=== PATIENT | male | born 1960 | race Caucasian/White ===

== ENCOUNTER 2020-12-02 15:57 | Observation (INO) | payer OTHER, SELFPAY ==
--- NOTE | ~2020-12-02 | CT_ITS ---
EXAMINATION: CT abdomen pelvis wo con DATE: 12/02/2020 16:52 INDICATION: Right flank pain. TECHNIQUE: Computed tomography (CT) of the abdomen and pelvis was performed without intravenous contr ast. Automated exposure control and iterative reconstruction technique were employed. The dose-length product was 253.32 mGy-cm. COMPARISON: None. FINDINGS: The visualized portions of the lung bases demonstrate minimal atelectasis. No pleural effus ion. The heart size is normal. No pericardial effusion. The liver, gallbladder, spleen, pancreas, and adrenal glands are normal. There are 8 mm and 6 mm stones in right kidney. There is mild right hydro nephrosis and hydroureter. There is a 5 mm stone in proximal right ureter. There is a 7.1 cm cyst in left kidney. There are no dilated loops of bowel. The appendix is normal. There are no pathologically enlarged lymph nodes. There is no free intraperitoneal fluid. There is moderate lumbar spondylosis a nd mild thoracic spondylosis. IMPRESSION: 1. 5 mm stone in proximal right ureter with mild right hydronephrosis and proximal hydroureter. 2. Nonobstructing right kidney stones. Reviewed, dictated and finalized at location A. IMPRESSION: 1. 5 mm stone in proximal right ureter with mild right hydronephrosis and proxi mal hydroureter. 2. Nonobstructing right kidney stones.
--- NOTE | ~2020-12-02 | XR_ITS ---
EXAMINATION: XR retrograde pyelo w/stent RT DATE: 12/03/2020 10:18 INDICATION: Right-sided ureteral stent placement TECHNIQUE: 53 fluoroscopic images of the abdomen and pelvis were obtained during procedure performed by Dr. Henderson. Radiologist was not present for the imaging or procedure. The amount of fluoroscopy t maureen used during this procedure was 0.4 minutes. COMPARISON: None. FINDINGS: Cotton Bag Sewer image redemonstrates the previously identified 5 mm stone in the proximal right ureter. Subsequ ent images demonstrate retrograde contrast injection into the right ureter which extends beyond the u reteral stone. The stone is no longer visualized on the final image which demonstrates right ureteral stent extending to the right renal pelvis. IMPRESSION: 1. Right ureteral stent placement post likely extraction of a previously noted right ureteral stone. See procedure note for further detail. Reviewed, dictated and finalized at location A.
--- NOTE | ~2020-12-02 | XR_ITS ---
EXAMINATION: XR abdomen/kub 1V DATE: 12/02/2020 17:01 INDICATION: Right flank pain. TECHNIQUE: A supine view of the abdomen on 2 radiographs was obtained. COMPARISON: CT abdomen and pelvis 12/02/2020 FINDINGS: There are no dilated loops of bowel. There are phleboliths in the pelvis. There is a 5 mm s tone in proximal right ureter at L4. There are 8 mm and 6 mm stones in right kidney lower pole. IMPRESSION: 1. 5 mm stone in proximal right ureter at L4. 2. Right kidney stones. Reviewed, dictated and finalized at location A.
[2020-12-02 16:02] VITALS: BP 194/113; PULSE 68; RESP 18; TEMP 36.6; O2SAT 100
[2020-12-02 16:25] LABS: Basophils Percent Auto 0.8 % (0.2-1.2); Eosinophils Absolute Auto 0.1 K/mm3 (0-0.3); Eosinophils Percent Auto 1.8 % (0-4.4); Hematocrit 47.2 % (42.0-52.0); Hemoglobin 16.3 g/dL (14.0-18.0); Immature Granulocyte Absolute 0.02 K/mm3 (0.00-0.031); Immature Granulocyte Percent A 0.5 % (0-0.5); Lymphocytes Absolute Auto 1.19 K/mm3 (0.9-3.2); Lymphocytes Percent Auto 30.1 % (18.3-44.2); Mean Corpuscular HGB Conc 34.5 g/dl (32-36); Mean Corpuscular Hemoglobin 30.5 pg (26-34); Mean Corpuscular Volume 88.2 fl (80-100); Mean Platelet Volume 11.1 fl (7.4-10.4); Monocytes Absolute Auto 0.5 K/mm3 (0.1-0.6); Monocytes Percent Auto 12.4 % (2.6-8.5); Neutrophils Absolute Auto 2.2 K/mm3 (1.3-6.7); Neutrophils Percent Auto 54.4 % (45.5-73.1); Platelet Count Result 218 k/mm3 (150-375); Red Blood Count 5.35 M/mm3 (4.6-6.20); Red Cell Distribution Width 11.8 % (11.5-14.5)
[2020-12-02 16:35] LABS: Anion Gap 12 mmol/L (8-16); Blood Urea Nitrogen 16 mg/dL (9-20); Calcium 9.7 mg/dL (8.4-10.2); Carbon Dioxide 29 mmol/L (22-30); Chloride 93 mmol/L (98-107); Estimated CRCL calculation 84 ml/min; Estimated Glomerular Filt Rate > 60; Glucose 364 mg/dL (65-110); Potassium 3.8 mmol/L (3.4-5.0); Sodium 134 mmol/L (137-145)
--- NOTE | 2020-12-02 16:48 | ED.ABDPAIN ---
HPI - Abdominal Pain General Chief Complaint: Urogenital-Male Stated Complaint: right flank pain Time Seen by Provider: 12/02/20 16:09 Source: patient and RN notes reviewed Mode of arrival: ambulatory Limitations: no limitations History of Present Illness HPI narrative: This is a 60 [address] with history of Diabetes Mellitus who presents for evaluation of right flank pain. PAtient was assessed for similar pain 3 weeks ago in [place]. He states he was diagnosed with a large right side kidney stone at that time. He has not been able to pass this stone, and his pain returned at 230 pm this afternoon. He has not taken anything pain. He denies associated nausea, vomiting, fever, dysuria or hematuria. Related Data Home Medications Medication Instructions Recorded Confirmed Glucofort Otc Supplement 1 tablet PO DAILY 12/02/20 12/02/20 glipizide 10 mg PO BID 12/02/20 12/02/20 metformin 750 mg PO BID 12/02/20 12/02/20 pioglitazone [Actos] 30 mg PO DAILY 12/02/20 12/02/20 Allergies Allergy/AdvReac Type Severity Reaction Status Date / Time No Known Allergies Allergy Verified 12/02/20 21:55 Review of Systems Review of Systems: All systems reviewed & are unremarkable except as noted in HPI and below PMFSH Past Medical History Medical History (Updated 12/03/20 @ 00:42 by Yana Hernandez MD) Diabetes mellitus Kidney stone Surgical History Surgical History (Updated 12/02/20 @ 16:56 by Yana Hernandez MD) H/O hernia repair Family History Family History (Updated 12/02/20 @ 21:47 by Maranda Barraza RN) Other Unknown family medical history Social History Social History Smoking status: Former smoker Alcohol intake: never Substance use: never Spiritual care concerns: No Exam Const: General: alert Orientation/consciousness: patient oriented x3 Other: appears to be in pain Eyes: EOM: EOMs intact bilaterally Resp: Effort & Inspection: normal respiratory effort and no retractions Auscultation: clear to auscultation bilaterally Cardio: Rate: regular rate Rhythm: regular rhythm Heart sounds: no murmurs GI: GI Palp: Yes Soft to palpation, Yes Tenderness to palpation present (GI) (RLQ), No Guarding due to palpation present (GI) and No Rigid due to palpation Auscultation: normal bowel sounds : General: Yes no CVA tenderness Back/Spine/Pelvis: Back: no CVA tenderness Skin: General skin exam: normal color Neuro: General: patient oriented x3, moves all extremities and CN's II-XI intact bilaterally Psych: Mental Status: mental status grossly normal Affect: normal affect Course Reevaluation(s) Reevaluation #1: I discussed with patient that he has proximal stone that will need to be removed at some point. I discussed with patient option of discharge for his to go home as he is from out of town vs talking to urologist about stent placement. I explained he that if stent placement he will still need to get urologist where he lives. He states he would like to be admitted for stent placement at this time. Date: 12/03/20 Time: 18:00 Consultations Consultation #1: I spoke with DR. Henderson about patient's history with stone for 3 weeks and DM type 2 . He agrees to admit patient for stent placement tomorrow. Date: 12/02/20 Time: 18:50 Vital Signs Vital signs: Vital Signs Temperature 97.8 F 12/02/20 16:02 Pulse Rate 68 12/02/20 16:02 Respiratory Rate 18 12/02/20 16:02 Blood Pressure 194/113 H 12/02/20 16:02 Pulse Oximetry 100 12/02/20 16:02 Temperature 98.9 F 12/02/20 22:00 Pulse Rate 67 12/02/20 22:00 Respiratory Rate 20 12/02/20 22:00 Blood Pressure 167/82 H 12/02/20 22:00 Pulse Oximetry 98 12/02/20 22:00 MDM - Abdominal Pain Lab Data Attestation: I reviewed the patient's lab results. Result diagrams: 12/02/20 16:14 12/02/20 16:14 Labs: Lab Results 12/02/20 12/02/20 12/02/20 Range/Units
[2020-12-02] MEDS: TAMSULOSIN HCL 0.4 MG CAPSULE (17:20)
[2020-12-02 17:31] LABS: Ethanol < 10 mg/dL (<10)
[2020-12-02 18:10] VITALS: BP 147/72; PULSE 71; RESP 16; O2SAT 99
[2020-12-02 18:20] LABS: Add Urine Microscopic? YES; Amorphous Sediment Urine Moderate; Appearance Urine Cloudy (Clear); Bilirubin Urine Negative (Negative); Blood Urine Negative (Negative); Color Urine Yellow (Yellow); Glucose Urine UA 3+ mg/dL (Negative); Ketones Urine Trace mg/dL (Negative); Leukocyte Esterase Ur Negative LEU/UL (Negative); Nitrate Urine Negative (Negative); Protein Urine Negative (Negative); Specific Grav Ur 1.016 (1.001-1.035); Squamous Epithelial Cell Urine Rare /hpf (Few); Urobilinogen Urine Negative mg/dL (<2.0); WBC Urine 0-3 /hpf
[2020-12-02 18:31] LABS: Amphetamine Screen Urine Negative (Negative); Barbiturate Screen Urine Negative (Negative); Benzodiazepines Screen Urine Negative (Negative); Cannabinoid Screen Urine Negative (Negative); Cocaine Screen Urine Negative (Negative); Methadone Screen Urine Negative (Negative); Opiate Screen Urine Negative (Negative); Phencyclidine Screen Urine Negative (Negative)
[2020-12-02] MEDS: KETOROLAC 30 MG/ML VIAL (*BKC) IV PUSH (18:56)
[2020-12-02] MEDS: ONDANSETRON INJ 4 MG/2 ML VIAL IV PUSH (19:08)
[2020-12-02 20:17] LABS: Glucose Point of Care 308 mg/dl (65-105)
[2020-12-02] MEDS: INSULIN HUMAN REGULAR (*BKC) 100 UNITS/ML SUB-Q (20:35)
[2020-12-02] MEDS: SODIUM CHLORIDE 0.9% IV 1,000 ML 999 ML IV CONT (20:35)
[2020-12-02 21:04] VITALS: BP 151/100; PULSE 72; RESP 19; O2SAT 100
[2020-12-02 21:05] LABS: Glucose Point of Care 326 mg/dl (65-105)
[2020-12-02] MEDS: HYDROmorphone HCL INJ (*CRX) 1 MG/ML SYR IV PUSH (21:08)
--- NOTE | 2020-12-02 21:22 | ADMGEN ---
This patient, Yariel Riley, was admitted to Medical Room 241-. Patient/family oriented to hospital policies and general routines including ID bracelet, bed and alarms, visiting hours, pain management, procedures, bathroom and other care routines, personal items, smoking policy, room service/diet, and visiting hours. Information on how to activate the Rapid Response Team has been discussed. Patient/Family are encouraged to report perceived risks to care and to ask questions if they do not understand what they are told or what they should do.
[2020-12-02] MEDS: SODIUM CHLORIDE 0.9% IV 1,000 ML 125 ML IV CONT (21:38)
[2020-12-02 21:46] VITALS: BMI 24.3
[2020-12-02 22:00] VITALS: BP 167/82; PULSE 67; RESP 20; TEMP 37.2; O2SAT 98
[2020-12-03] VITALS (20 sets, daily range): BP systolic 128–166; BP diastolic 64–86; PULSE 67–83; RESP 10–20; TEMP 36.3–37; O2SAT 95–99
[2020-12-03] MEDS: MORPHINE SULFATE (*CRX) 4 MG/ML INJ IV PUSH ×2 (02:33→04:33)
[2020-12-03] MEDS: SODIUM CHLORIDE 0.9% IV 1,000 ML 125 ML IV CONT ×2 (05:45→18:32)
[2020-12-03 06:06] LABS: Basophils Percent Auto 0.3 % (0.2-1.2); Eosinophils Absolute Auto 0.1 K/mm3 (0-0.3); Eosinophils Percent Auto 0.7 % (0-4.4); Hematocrit 40.9 % (42.0-52.0); Hemoglobin 14.3 g/dL (14.0-18.0); Immature Granulocyte Absolute 0.02 K/mm3 (0.00-0.031); Immature Granulocyte Percent A 0.3 % (0-0.5); Lymphocytes Absolute Auto 0.97 K/mm3 (0.9-3.2); Lymphocytes Percent Auto 14.3 % (18.3-44.2); Mean Corpuscular Hemoglobin 30.2 pg (26-34); Mean Corpuscular Volume 86.5 fl (80-100); Mean Platelet Volume 11.6 fl (7.4-10.4); Monocytes Absolute Auto 0.8 K/mm3 (0.1-0.6); Monocytes Percent Auto 12.2 % (2.6-8.5); Neutrophils Absolute Auto 4.9 K/mm3 (1.3-6.7); Neutrophils Percent Auto 72.2 % (45.5-73.1); Platelet Count Result 179 k/mm3 (150-375); Red Blood Count 4.73 M/mm3 (4.6-6.20); Red Cell Distribution Width 11.5 % (11.5-14.5); White Blood Count 6.8 K/mm3 (4.5-10.0)
[2020-12-03 06:48] LABS: Alanine Aminotransferase 20 U/L (4-50); Albumin Level 3.5 g/dL (3.5-5.1); Alkaline Phosphatase 61 U/L (38-126); Anion Gap 5 mmol/L (8-16); Aspartate Amino Transferase 32 U/L (17-59); Bilirubin,Total 0.7 mg/dL (0.2-1.3); Blood Urea Nitrogen 15 mg/dL (9-20); Calcium 8.5 mg/dL (8.4-10.2); Carbon Dioxide 26 mmol/L (22-30); Chloride 101 mmol/L (98-107); Estimated CRCL calculation 77 ml/min; Estimated Glomerular Filt Rate > 60; Glucose 272 mg/dL (65-110); Potassium 3.7 mmol/L (3.4-5.0); Sodium 132 mmol/L (137-145)
[2020-12-03 08:16] LABS: Glucose Point of Care 263 mg/dl (65-105)
--- NOTE | 2020-12-03 09:03 | PC.NURSE ---
To OR per bed, IV intact. Report given to MUSA Valladares.
--- NOTE | 2020-12-03 09:10 | PM.IMHP ---
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 He is passing through on his way to [place]. He was hospitalized in mid September for a right-sided stone. He states he underwent no intervention. He was discharged with pain medication. He has had recurrent right flank pain. He presented to the [facility]. CT scan showed 2 stones in his kidney. One of the upper pole. One of the lower pole. He also has a 5-6 mm stone in the proximal right ureter. He denies any fevers, chills, dysuria, visible blood in the urine. He does note some GERD symptoms. He denies any nausea or vomiting. He will undergo intervention today in the form of a stent. He will be discharged afterwards. He will have follow-up set up near his home in [place]. Chief Complaint: Ureteral stone Review of Systems Review of Systems: All systems reviewed & are unremarkable except as noted in HPI and below PMFSH Past Medical History Medical History Diabetes mellitus Kidney stone Surgical History Surgical History H/O hernia repair Family History Family History (Updated 12/03/20 @ 09:13 by Alphonso Henderson MD) Other Kidney disease Unknown family medical history Social History Social History Smoking status: Former smoker Alcohol intake: never Substance use: never Spiritual care concerns: No Meds Home Medications and Allergies Home Medications Medication Instructions Recorded Confirmed Type Glucofort Otc Supplement 1 tablet PO DAILY 12/02/20 12/02/20 History glipizide 10 mg PO BID 12/02/20 12/02/20 History metformin 750 mg PO BID 12/02/20 12/02/20 History pioglitazone [Actos] 30 mg PO DAILY 12/02/20 12/02/20 History Allergies Allergy/AdvReac Type Severity Reaction Status Date / Time No Known Allergies Allergy Verified 12/02/20 21:55 Vital Signs Vital Signs - 24 hr 12/02/20 16:02 12/02/20 18:10 12/02/20 21:04 Temperature 97.8 F Pulse Rate 68 71 72 Respiratory Rate 18 16 19 Blood Pressure 194/113 H 147/72 H 151/100 H Pulse Oximetry 100 99 100 12/02/20 22:00 12/03/20 06:00 Temperature 98.9 F 98.6 F Pulse Rate 67 67 Respiratory Rate 20 20 Blood Pressure 167/82 H 139/80 Pulse Oximetry 98 98 Exam Const: General: cooperative, healthy appearing, alert and awake; No confusion Nutritional Appearance: thin Orientation/consciousness: patient oriented x3 HENMT: Head: normal to inspection Ears: hearing grossly normal bilaterally Eyes: General: appearance normal, both eyes and all related structures Neck: Neck: full ROM Resp: Effort & Inspection: normal respiratory effort, able to speak in complete sentences and no cough GI: Inspection: normal to inspection and no obesity GI Palp: No abdominal tenderness Back/Spine/Pelvis: Back: CVA tenderness Skin: General skin exam: normal color, no rashes or lesions noted and elasticity normal Neuro: General: patient oriented x3 and moves all extremities Extrem: General: full ROM Psych: Appearance: grossly normal and well kempt Mental Status: mental status grossly normal Speech and movement: Clear speech present H&P: Results Labs Labs: Short CBC 12/02/20 12/03/20 Range/Units 16:14 05:08 WBC 4.0 L 6.8 (4.5-10.0) K/mm3 Hgb 16.3 14.3 (14.0-18.0) g/dL Hct 47.2 40.9 L (42.0-52.0) % Plt Count 218 179 (150-375) k/mm3 [facility] 12/02/20 12/03/20 16:14 05:08 Sodium 134 L 132 L Potassium 3.8 3.7 Chloride 93 L 101 Carbon Dioxide 29 26 BUN 16 15 Creatinine 1.00 1.10 Glucose 364 H 272 H Calcium 9.7 8.5 Liver Function 12/03/20 Range/Units 05:08 Total Bilirubin 0.7 (0.2-1.3) mg/dL AST 32 (17-59) U/L ALT 20 (4-50) U/L Alkaline Phosphatase 61 (38-126) U/L
--- NOTE | 2020-12-03 09:17 | WPDHPUPDATE1 ---
History and Physical Update Update Date/Time: 12/03/20 09:17 History and Physical has been reviewed, including an updated exam of the patient. There are NO changes in the patient's condition. Risks, benefits, and alternatives have been discussed and questions answered. Patient agrees to proceed with procedure.
[2020-12-03] MEDS: LACTATED RINGERS 1,000 ML 30 ML IV CONT (09:20)
--- NOTE | 2020-12-03 09:45 | WPDANESEPPF ---
Anes - Initial Pre Proc Eval Procedure: Operation Date: 12/03/20 09:00 Proposed Procedures p Cysto, RPG, Stone Ext, Stent Placement(Right) - Alphonso Henderson MD Date/Time: 12/03/20 09:45 Surgeon: Alphonso Henderson MD Pre Op Diagnosis: Right Proximal Ureteral Stone Patient Data Age: 60 Gender: M Height: 1.91 m Weight: 88.5 kg Last Vital Signs Temp 37.0 C 12/03/20 06:00 Pulse 67 12/03/20 06:00 Resp 20 12/03/20 06:00 BP 139/80 12/03/20 06:00 Pulse Ox 98 12/03/20 06:00 Allergies Allergy/AdvReac Type Severity Reaction Status Date / Time No Known Allergies Allergy Verified 12/02/20 21:55 Home Medications Medication Instructions Recorded Confirmed Type Glucofort Otc Supplement 1 tablet PO DAILY 12/02/20 12/02/20 History glipizide 10 mg PO BID 12/02/20 12/02/20 History metformin 750 mg PO BID 12/02/20 12/02/20 History pioglitazone [Actos] 30 mg PO DAILY 12/02/20 12/02/20 History Laboratory Tests 12/02/20 12/02/20 12/02/20 16:14 16:14 16:14 WBC 4.0 K/mm3 L K/mm3 (4.5-10.0) RBC 5.35 M/mm3 M/mm3 (4.6-6.20) Hgb 16.3 g/dL g/dL (14.0-18.0) Hct 47.2 % % (42.0-52.0) MCV 88.2 fl fl (80-100) MCH 30.5 pg pg (26-34) MCHC 34.5 g/dl g/dl (32-36) RDW 11.8 % % (11.5-14.5) Plt Count 218 k/mm3 k/mm3 (150-375) MPV 11.1 fl H fl (7.4-10.4) Immature Gran % (Auto) 0.5 % % (0-0.5) Neut % (Auto) 54.4 % % (45.5-73.1) Lymph % (Auto) 30.1 % % (18.3-44.2) [place] % (Auto) 12.4 % H % (2.6-8.5) Eos % (Auto) 1.8 % % (0-4.4) Baso % (Auto) 0.8 % % (0.2-1.2) Lymph # (Auto) 1.19 K/mm3 K/mm3 (0.9-3.2) [place] # (Auto) 0.5 K/mm3 K/mm3 (0.1-0.6) Eos # (Auto) 0.1 K/mm3 K/mm3 (0-0.3) Baso # (Auto) 0.0 K/mm3 K/mm3 (0.0-0.1) Abs Immat Gran (auto) 0.02 K/mm3 K/mm3 (0.00-0.031) Absolute Neuts (auto) 2.2 K/mm3 K/mm3 (1.3-6.7) Absolute Nucleated RBC 0.0 K/mm3 K/mm3 (0.0-0.012) Nucleated RBC % 0.0 % % (0.0-0.2) Sodium 134 mmol/L L mmol/L (137-145) Potassium 3.8 mmol/L mmol/L (3.4-5.0) Chloride 93 mmol/L L mmol/L (98-107) Carbon Dioxide 29 mmol/L mmol/L (22-30) Anion Gap 12 mmol/L mmol/L (8-16) BUN 16 mg/dL mg/dL (9-20) Creatinine 1.00 mg/dL mg/dL (0.7-1.3) Estim Creat Clear Calc 84 ml/min ml/min Estimated GFR > 60 (59 - ) Glucose 364 mg/dL H mg/dL (65-110) POC Capillary Glucose Calcium 9.7 mg/dL mg/dL (8.4-10.2) Total Bilirubin AST ALT Alkaline Phosphatase Total Protein Albumin Urine Color Urine Appearance Urine pH Ur Specific Roy Urine Protein Urine Glucose (UA) Urine Ketones Ur Blood (Man) Urine Nitrate Urine Bilirubin Urine Urobilinogen Leukocyte Esterase Rfl Urine RBC Urine WBC Ur Squamous Epith Cells Amorphous Sediment Urine Opiates Screen Urine Methadone Screen Ur Barbiturates Screen Ur Phencyclidine Scrn Ur Amphetamine Screen U Benzodiazepines Scrn Urine Cocaine Screen U Cannabinoids Screen Ethyl Alcohol < 10 mg/dL mg/dL (<10) 12/02/20 12/02/20 12/02/20 18:08 18:08 20:15 WBC RBC Hgb Hct MCV MCH MCHC RDW Plt Count MPV Immature Gran % (Auto) Neut % (Auto) Lymph % (Auto)
[2020-12-03] MEDS: ceFAZolin 2 GM/D5W 50 ML 2 GM/50 ML BAG IVPB (09:56)
[2020-12-03] MEDS: LIDOCAINE HCL 2% GEL UROJET 10 ML PKG MUCOUS MEM (10:06)
--- NOTE | 2020-12-03 10:19 | W.PM.PROC2 ---
Procedure Note - Detailed Date of Procedure 12/03/20 Pre-op Diagnosis Right Proximal Ureteral Stone, hydronephrosis, right renal stones Post-op Diagnosis same Procedure Performed Cystoscopy, right retrograde pyelogram, right ureteral stent placement Surgeon Alphonso Henderson MD Anesthesia MAC Indications This is a gentleman with nonobstructing renal stones as well as a proximal ureteral stone on the right. He presents today for stent. He will have definitive stone management closer to home. Findings Renal stones visible on traffic control signaler. Proximal ureteral stone visible on traffic control signaler as well. It is about 1 cm in length. Description of Procedure He has correctly identified. Informed consent obtained. From the operating room. He was given MAC anesthesia. He was placed in the dorsal thigh position. He was prepped and draped in a sterile fashion. He was given appropriate perioperative antibiotics. A time-out performed. Turbine Blade Assembler radiography revealed a right renal stones. As well as the right proximal ureteral stone. It appeared to be about 1 cm in length. I performed cystoscopy. The bladder was examined. There was mild trabeculations. Otherwise normal. I did retrograde pyelogram on the right. Outlying renal anatomy. There was hydronephrosis proximal to the stone. I placed a guidewire to the kidney. I then placed a 4.8 variable length stent. Proximal coil was in the upper pole kidney. Distal coil was the bladder. The bladder was drained. He was awakened and transferred to PACU in stable condition. Implants 4.8 variable length stent Estimated Blood Loss 1 Urine Output 0 Drains No Packing No Pathology none sent Complications No immediate complications Condition stable Disposition PACU
[2020-12-03 10:28] LABS: Glucose Point of Care 263 mg/dl (65-105)
--- NOTE | 2020-12-03 10:38 | SUR.PHASEI ---
DR. REYNOLDS AWARE OF PATIENT'S BLOOD SUGAR 263; NO INTERVENTION AT THIS TIME.
[2020-12-03] MEDS: fentaNYL CITRATE INJ (*CRX) 100 MCG/2 ML VIAL 25 MCG IV PUSH ×3 (11:02→11:35)
[2020-12-03] MEDS: ONDANSETRON INJ 4 MG/2 ML VIAL IV PUSH (11:43)
[2020-12-03] MEDS: MEPERIDINE HCL INJ (*CRX) 50 MG/ML AMPUL 25 MG IV PUSH (12:14)
[2020-12-03] MEDS: KETOROLAC 30 MG/ML VIAL (*BKC) IV PUSH (12:29)
--- NOTE | 2020-12-03 12:59 | SUR.PHASEI ---
CLAUDIA RN ON 2 MEDICAL CALLED TO TELL HER TO GIVE CD OF IMAGING TO PATIENT WHEN DISCHARGED. RELEASE OF INFORMATION CONSENT FILLED OUT FOR PATIENT TO HAVE MEDICAL RECORD SENT TO HIS PRACTITIONER IN [place], [place]. LUNCH ORDERED FOR PATIENT.
--- NOTE | 2020-12-03 13:05 | SUR.PHASEI ---
1215 DR. REYNOLDS NOTIFIED RE: PATIENT INCREASED RIGHT LOWER ABDOMINAL PAIN; INSTRUCTED TO GIVE TORADOL.
[2020-12-03 13:23] LABS: Glucose Point of Care 298 mg/dl (65-105)
[2020-12-03] MEDS: INSULIN ASPART (*BKC) 100 UNITS/ML SUB-Q ×2 (13:26→17:08)
[2020-12-03] MEDS: HYDROcodone/acetaminophen (*CRX) 5-325 MG TABLET 1 TAB PO (17:03)
[2020-12-03] MEDS: OXYBUTYNIN CHLORIDE 5 MG TABLET PO (17:03)
[2020-12-03 17:08] LABS: Glucose Point of Care 291 mg/dl (65-105)
[2020-12-03] MEDS: glipiZIDE 5 MG TABLET 10 MG PO (17:11)
[2020-12-03 20:18] LABS: Glucose Point of Care 340 mg/dl (65-105)
[2020-12-03 21:20] LABS: Glucose Point of Care 337 mg/dl (65-105)
[2020-12-04] MEDS: SODIUM CHLORIDE 0.9% IV 1,000 ML 125 ML IV CONT (03:05)
[2020-12-04 03:49] VITALS: BP 140/84; PULSE 78; RESP 16; TEMP 37.1; O2SAT 96
[2020-12-04 06:56] LABS: Glucose Point of Care 245 mg/dl (65-105)
[2020-12-04] MEDS: INSULIN ASPART (*BKC) 100 UNITS/ML SUB-Q ×2 (07:20→12:55)
[2020-12-04] MEDS: PIOGLITAZONE HCL 30 MG TABLET PO (08:20)
[2020-12-04] MEDS: glipiZIDE 5 MG TABLET 10 MG PO (08:20)
--- NOTE | 2020-12-04 09:27 | WPDANESPN ---
Anes - Prog Note Post-Op Date/Time: 12/04/20 09:27 Cardiovascular status: normal Respiratory status: normal Airway patency: baseline Mental status: baseline Post-Op hydration status: normal Vital Signs: Last Vital Signs Temp 37.1 C 12/04/20 03:49 Pulse 78 12/04/20 03:49 Resp 16 12/04/20 03:49 BP 140/84 12/04/20 03:49 Pulse Ox 96 12/04/20 03:49 Pain Score (VAS): no complaints I/O: Intake & Output 12/03/20 12/04/20 12/04/20 23:59 07:59 15:59 Intake Total 1540 1680 Output Total 1100 1900 500 Balance 440 -220 -500 Laboratory Tests 12/03/20 05:08 12/03/20 05:08 12/03/20 12/03/20 12/03/20 10:25 13:20 17:05 POC Capillary Glucose 263 H 298 H 291 H 12/03/20 12/03/20 12/04/20 20:13 21:17 06:53 POC Capillary Glucose 340 H 337 H 245 H Post-procedural complaints: none Patient Feedback: Patient satisfied with anesthetic care.
[2020-12-04 10:00] VITALS: BP 147/81; PULSE 83; RESP 18; TEMP 36.3; O2SAT 98
--- NOTE | 2020-12-04 11:06 | PC.NURSE ---
On 12/04/20, the student, Corbin Rousseau, provided care and completed [facility] documentation on this patient. I have reviewed the student's documentation and agree with the findings.
[2020-12-04] MEDS: levoFLOXacin 500 MG TABLET PO (11:23)
--- NOTE | 2020-12-04 11:35 | WPDUROPN2 ---
Progress Note: A&P Assessment and Plan (1) Calculus, kidney: Code(s): N20.0 - Calculus of kidney Status: Acute Assessment and Plan: Patient will go home today, he is aware that he will have hematuria and stent pain with urination. He will f/u with a urologist in [place] where he is from. No further evaluation needed. (2) Calculus of proximal right ureter: Code(s): N20.1 - Calculus of ureter Status: Acute Subjective Subjective Date/Time Seen: 12/04/20 11:35 POD #1 Cystoscopy, right ureteroscopy with stent placement, right retrograde pyelogram. The patient is doing well today, he c/o stent pain with urination and he is bloody with urination. Review of Systems Cardiovascular: Cardiovascular: Denies chest pain Respiratory: Respiratory: Reports no additional respiratory complaints Gastrointestinal: Gastrointestinal: Denies abdominal pain, Denies diarrhea and Denies vomiting Genitourinary: Genitourinary: Reports hematuria, Denies dysuria, Reports flank pain and Reports urinary frequency Exam Resp: Effort & Inspection: normal respiratory effort Cardio: Rate: regular rate GI: GI Palp: Yes Soft to palpation and No Tenderness to palpation present (GI) : General: Yes no CVA tenderness Extrem: General: no edema Objective Data Vital Signs Vital Signs: Vital Signs - 24 hr 12/03/20 11:50 12/03/20 12:05 12/03/20 12:20 Temperature Pulse Rate 77 76 72 Respiratory Rate 11 L 17 11 L Blood Pressure 165/78 H 164/84 H 163/79 H Pulse Oximetry 95 95 95 12/03/20 12:35 12/03/20 12:41 12/03/20 13:00 Temperature 98.6 F Pulse Rate 76 83 79 Respiratory Rate 17 13 20 Blood Pressure 149/84 H 148/81 H 136/71 Pulse Oximetry 95 97 97 12/03/20 13:15 12/03/20 13:45 12/03/20 14:45 Temperature 97.8 F 97.7 F 97.4 F L Pulse Rate 68 71 67 Respiratory Rate 18 18 20 Blood Pressure 131/73 146/76 H 128/69 Pulse Oximetry 99 98 97 12/03/20 17:28 12/03/20 17:45 12/03/20 19:29 Temperature 97.5 F L 97.8 F Pulse Rate 70 74 Respiratory Rate 18 16 Blood Pressure 136/74 131/67 Pulse Oximetry 97 97 97 12/03/20 23:20 12/04/20 03:49 12/04/20 10:00 Temperature 98.1 F 98.8 F 97.4 F L Pulse Rate 78 78 83 Respiratory Rate 15 16 18 Blood Pressure 141/64 H 140/84 147/81 H Pulse Oximetry 96 96 98 Intake/Output Intake/Output: Intake & Output 12/01/20 12/02/20 12/03/20 12/04/20 23:59 23:59 23:59 23:59 Intake Total 100 3590 3230 Output Total 1900 3525 Balance 100 1690 -295 Meds/Results Medications: Active Medications Generic Name Dose Route Start Last Admin Trade Name Freq PRN Reason Stop Dose Admin Hydrocodone Bitart/Acetaminophen 1 tab 12/03/20 12:56 12/03/20 17:03 Hydrocodone/Acetaminophen (*Crx) 5-325 Mg Tablet PO 1 tab Q4H PRN Administration Pain Rated 4-6 Dextrose 12.5 gm 12/02/20 20:17 Dextrose 50% 25 Gm/50 Ml Syringe IV PUSH PRN PRN Hypoglycemia Protocol Glipizide 10 mg 12/03/20 17:00 12/04/20 08:20 Glipizide 5 Mg Tablet PO 10 mg BID GILLES Administration Glucagon 1 mg 12/02/20 20:17 Glucagon For Inj 1 Mg Vial IM PRN PRN Hypoglycemia Protocol Glucose 15 gm 12/02/20 20:17 Glucose Oral Gel 15 Gm Of Glucse In 37.5 Gm Tube PO PRN PRN Hypoglycemia Protocol Sodium Chloride 1,000 mls @ 125 mls/hr 12/02/20 20:20 12/04/20 11:23 Normal Saline Iv IV CONT Infused .Q8H GILLES Infusion Insulin Aspart 3 - 6 units 12/03/20 08:00 12/04/20 07:20 Insulin Aspart (*Bkc) 100 Units/Ml SUB-Q 3 units TIDWM GILLES Administration Protocol Ketorolac Tromethamine 30 mg 12/02/20 20:17 12/03/20 12:29 Ketorolac 30 Mg/Ml Vial (*Bkc) IV PUSH 12/07/20 20:16 30 mg Q6H PRN Administration Pain Rated 4-6 Levofloxacin 500 mg 12/04/20 09:00 09/07/21 11:23 Levofloxacin 500 Mg Tablet PO 500 mg DAILY GILLES Administration Morphine Sulfate 4 mg 12/02/20 20:17 12/03
[2020-12-04 12:53] LABS: Glucose Point of Care 275 mg/dl (65-105)
--- NOTE | 2020-12-10 10:11 | PM.DS ---
DS: Admitting Diagnosis Discharge Date 12/04/20 Admitting Diagnosis Ureteral stone DS: Discharge Diagnosis Discharge Diagnosis (1) Hydronephrosis: Code(s): N13.30 - Unspecified hydronephrosis Status: Acute DS: Summary Hospital Course Hospital Course: He was admitted due to pain from ureteral stone. He underwent uncomplicated stent placement. 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 He was brought in the hospital with pain from ureteral stone. He underwent uncomplicated stent placement. He was discharged home in stable condition. He will follow up in [place] for stone management. He understands that he does have a stent and will need to be removed. He understands he will need urologic follow-up to take care of his stent as well as the stone Exam Const: General: cooperative and healthy appearing HENMT: Ears: hearing grossly normal bilaterally Eyes: General: appearance normal, both eyes and all related structures Resp: Effort & Inspection: normal respiratory effort and able to speak in complete sentences Skin: General skin exam: normal color Extrem: General: normal to inspection Psych: Appearance: grossly normal Discharge Plan Discharge Attending physician on discharge: Alphonso Henderson Consulting providers: Hilda Patino ; Ben Schmitz ; Sanford Quiles V. Discharging Clinician: Alphonso Henderson Anticipated Discharge Date/Time: 12/04/20 10:01 Patient Disposition: Home, Self-Care Activity: may shower Diet: as tolerated Discharge Instructions: Can be discharged home. Please set up an appointment with a Urologist to address your stone when returning home. You may contact our medical records department for copies of your hospital notes and CT scan. Patient Instructions: Antibiotic Form Stand Alone Forms: General Discharge Information Follow-up/Referrals: PHYSICIAN NOT ON STAFF,NONSTAFF [Primary Care Provider] - (Follow-up with urology closer to home) Discharge Medications: New phenazopyridine [Pyridium] 200 mg tablet 200 mg PO TID PRN (Reason: pain) Qty: 30 RF: 0 oxybutynin chloride 5 mg tablet 5 mg PO TID Qty: 60 RF: 0 hydrocodone-acetaminophen 5-325 mg tablet 1 tablet PO Q6H PRN (Reason: pain) Qty: 30 RF: 0 Continued glipizide 10 mg Tablet 10 mg PO BID RF: 0 pioglitazone [Actos] 30 mg Tablet 30 mg PO DAILY RF: 0 metformin 750 mg Tablet Extended Release 24 Hr 750 mg PO BID RF: 0 Glucofort Otc Supplement 1 tablet PO DAILY RF: 0 Date of admission: 12/02/20 20:17 Primary Care Provider: PHYSICIAN NOT ON STAFF,NONSTAFF Admitting Provider: Alphonso Henderson Attending physician on admission: Alphonso Henderson Condition: Stable
== END 2020-12-04 13:59 | disposition home or self-care (01) ==
LOC: ANHED 17:27 → ANH2MED 20:38
PROVIDERS: Emergency Medicine; Admitting Provider Urology; Emergency Provider General Practice; Visit Provider Urology
PROC: (CPT 52352; principal; 2020-12-03 09:00)
DX: N13.2 Hydronephrosis with renal and ureteral calculous obstruction (principal); E11.9 Type 2 diabetes mellitus without complications; Z79.84 Long term (current) use of oral hypoglycemic drugs; Z87.891 Personal history of nicotine dependence; Z79.899 Other long term (current) drug therapy
CPT/HCPCS: 52332; 36415; 74018; 74176; 74420; 80048; 80053; 80307; 81001; 82948; 85025; 96361; 96365; 96374; 96375; 96376; 99285; A9270; C1769; C2617; G0378; J0131; J0690; J1170; J1815; J1885; J2175; J2270; J2405; J3010; J7030; J7120; Q9966